=== PATIENT | male | born 1970 | race Hispanic/Latino ===

== ENCOUNTER → 2017-11-18 | Day surgery (SDC) | payer OTHER ==
[2017-11-17 10:13] LABS: BASOPHILS % 0.7 % (0.0-1.0); EOSINOPHILS # (AUTO) 0.2 (0.0-0.4); EOSINOPHILS % 3.8 % (0.0-6.0); HEMATOCRIT 44.2 % (38.2-49.6); HEMOGLOBIN 15.9 g/dL (14.0-18.0); LYMPHOCYTES % 35.5 % (18.0-39.1); MEAN CORPUSCULAR HEMOGLOBIN 31.1 pg (28-32); MEAN CORPUSCULAR VOLUME 86.3 fL (81-99); MONOCYTES # (AUTO) 0.5 (0.2-0.8); MONOCYTES % 8.4 % (4.4-11.3); NEUTROPHILS # (AUTO) 2.8 (2.1-6.9); NEUTROPHILS % 51.4 % (38.7-80.0); PLATELET COUNT 227 x10e3/uL (140-360); RED BLOOD COUNT 5.12 x10e6/uL (4.3-5.7); RED CELL DISTRIBUTION WIDTH 12.3 % (11.7-14.4)
[2017-11-17 10:31] LABS: ANION GAP 10.1 mmol/L (8-16); BLOOD UREA NITROGEN 12 mg/dL (7-26); BUN/CREATININE RATIO 16 (6-25); CALCIUM 8.5 mg/dL (8.4-10.2); CARBON DIOXIDE 30 mmol/L (22-29); CHLORIDE 102 mmol/L (98-107); CREATININE, SERUM 0.73 mg/dL (0.72-1.25); EST GLOMERULAR FILTRATION RATE > 60 ML/MIN (60-); GLUCOSE 213 mg/dL (74-118); POTASSIUM 4.1 mmol/L (3.5-5.1); SODIUM 138 mmol/L (136-145)
[~2017-11-18] MED LIST: ACETAMINOPHEN/CODEINE 300MG - 30MG TAB ONE; BUPIVACAINE 0.25%/EPI 30ML SDV INJ ONE; CEFAZOLIN SOD 1 GM VIAL ONE; DEXAMETHASONE SOD PHOS INJ 4 MG/ML VIAL ONE; FENTANYL CITRATE/PF 100MCG/2 ML INJ ONE; KETOROLAC TROMETHAMINE 30 MG/ML VIAL ONE; LIDOCAINE HCL 2% LOCAL INJ 5 ML SDV VIAL INJ ONE; METFORMIN HCL500 MG PO; MIDAZOLAM HCL 2 MG/2 ML VIAL ONE; ONDANSETRON HCL INJ 2 MG/ML VIAL ONE; PROPOFOL IV EMULSION 10 MG/ML 20 ML VIAL ONE; ROCURONIUM BROMIDE 10 MG/ML 5ML VIAL ONE; SEVOFLURANE INHAL SOLN 250 ML PEN BTL ONE
--- OUTSIDE RECORDS SUMMARY | 2017-11-18 08:14 | XMS REPORT ---
Author Author [facility] Address Unknown Phone Unavailable Care Team Providers Care Video Manager Name Role Phone ERYN MAXWELL Unavailable Unavailable Problems This patient has no known problems. Allergies, Adverse Reactions, Alerts This patient has no known allergies or adverse reactions. Medications This patient has no known medications. Results Test Description Test Time Test Comments Text Results Atomic Results Result Comments US EXTREMITY DE LUNA NON-VAS [place] [address] Patient Name: EMILIANO TUTTLE MR #: [id number] : 1970 Age/Sex: 47/M Req #: [id number] Adm Physician: Ordered by: ERYN MAXWELL MD Report #: [id number] Location: Room/Bed: Procedure: [id number] 0016 US/US EXTREMITY DE LUNA NON-VAS Exam Date: 08/11/17 Exam Time: 1603 REPORT STATUS: Signed PROCEDURE: EXTREMITY ULTRASOUND COMPARISON: None. INDICATIONS: UNILATERAL INGUINAL HERNIA TECHNIQUE: Color duplex Doppler ultrasound evaluation analysis was performed in the usual manner. FINDINGS: Fat containing left inguinal hernia. Partially reducible. CONCLUSION: Partially reducible fat-containing left inguinal hernia. Dictated by: Darnell Wheat M.D. on 08/11/2017 at 16:51 Electronically approved by: Darnell Wheat M.D. on 08/11/2017 at 16:51 Dictated By: DARNELL WHEAT MD 50 Transcribed By: RUBEN on 08/11/171650 COPY TO: ERYN MAXWELL MD
--- NOTE | 2017-11-18 14:48 | Operative Report ---
DATE OF PROCEDURE: November 18, 2017 PREOPERATIVE DIAGNOSIS: Bilateral inguinal hernia. POSTOPERATIVE DIAGNOSIS: Bilateral inguinal hernia. PROCEDURE PERFORMED: Repair of left inguinal hernia. ANESTHESIA: General. ESTIMATED BLOOD LOSS: Minimal. DRAINS: None. COMPLICATIONS: None. INDICATIONS AND FINDINGS: The patient is a 47-year-old male who complained of pain in the left groin after heavy lifting at work. Physical examination revealed bilateral inguinal hernia, left greater than right. INTRAOPERATIVE FINDINGS: A left inguinal hernia with a blowout of the left inguinal canal floor. There was no indirect hernia sac. The Ultra Pro hernia system oval type was placed. DESCRIPTION OF PROCEDURE: With the patient lying on the operative table in the supine position and after administration of general anesthesia, he was prepped and draped for repair of the left inguinal hernia. Pre-emptive anesthesia was given with 0.25% Marcaine with epinephrine as an ilioinguinal nerve block and incisional nerve block. A transverse groin incision was made and deepened through the skin, subcutaneous tissue and Miranda's fascia until the external aponeurosis was identified. This was incised along the course of its fibers transecting the external inguinal ring. Mid and lateral leads were developed. The cord was mobilized at the level of the pubic tubercle and retracted away from the operative field by a Margi drain. The cremaster veil was incised. An indirect hernia sac was searched for and none was found. The transversalis fascia was then incised, and a pocket was created using blunt dissection to accommodate the mesh. Then the Ultra Pro hernia system oval type was placed with the underlay part of the mesh over the direct space and the overlay part over the inguinal canal floor. A slit was made to accommodate the cord. Then the mesh was secured to local tissues using a series of interrupted 2 Ethibond suture. The wound was irrigated. Bleeding points were cauterized. Then the wound was closed in layers using 2-0 Vicryl for the external aponeurosis, 2-0 catgut for the soft tissues and the skin was closed using giorgio. Sterile dressing was applied. The patient tolerated the procedure well, and taken to the recovery room in stable condition. Job#: [id number] [place]
== END | disposition home or self-care (01) ==
LOC: OR 08:11
PROVIDERS: ATTEND Surgery
DX: K40.20 Bilateral inguinal hernia, without obstruction or gangrene, not specified as recurrent (principal); E11.9 Type 2 diabetes mellitus without complications; Z01.810 Encounter for preprocedural cardiovascular examination; Z01.812 Encounter for preprocedural laboratory examination
CPT/HCPCS: 36415 ×2; 49505; 80048; 82948; 85025; 93005; C1781; J0690; J1100; J1885; J2001; J2250; J2405

== ENCOUNTER 2018-03-07 18:21 | Emergency (ER) | payer OTHER ==
[~2018-03-07] VITALS: Ht 180.3 cm; Wt 99.8 kg
[~2018-03-07 18:21] MED LIST changes: -ACETAMINOPHEN/CODEINE 300MG - 30MG TAB ONE; -BUPIVACAINE 0.25%/EPI 30ML SDV INJ ONE; -CEFAZOLIN SOD 1 GM VIAL ONE; -DEXAMETHASONE SOD PHOS INJ 4 MG/ML VIAL ONE; -FENTANYL CITRATE/PF 100MCG/2 ML INJ ONE; -KETOROLAC TROMETHAMINE 30 MG/ML VIAL ONE; -LIDOCAINE HCL 2% LOCAL INJ 5 ML SDV VIAL INJ ONE; -MIDAZOLAM HCL 2 MG/2 ML VIAL ONE; -ONDANSETRON HCL INJ 2 MG/ML VIAL ONE; -PROPOFOL IV EMULSION 10 MG/ML 20 ML VIAL ONE; -ROCURONIUM BROMIDE 10 MG/ML 5ML VIAL ONE; -SEVOFLURANE INHAL SOLN 250 ML PEN BTL ONE
[2018-03-07] MEDS ORDERED: HYDROCODONE/APAP 10MG-325MG TAB PO ONE (19:00)
--- NOTE | 2018-03-07 19:38 | Diagnostic Imaging Report ---
Right complete knee. CPT CODE: 27902. INDICATION: Fall COMPARISON: None FINDINGS: No evidence of acute fracture or dislocation. Mild tilt femoral compartment narrowing. No significant medial or lateral compartment narrowing. No joint effusion. IMPRESSION: No acute traumatic pathology. Signed by: Dr. Michelle San MD on 03/07/2018 7:35 PM
[2018-03-07 20:46] VITALS: BP 126/89
== END 2018-03-07 20:49 | disposition home or self-care (01) ==
LOC: ER 18:21
DX: S80.01XA Contusion of right knee, initial encounter (principal); S83.91XA Sprain of unspecified site of right knee, initial encounter; X50.1XXA Overexertion from prolonged static or awkward postures, initial encounter; Y92.008 Other place in unspecified non-institutional (private) residence as the place of occurrence of the external cause
CPT/HCPCS: 99283

== ENCOUNTER 2020-07-25 22:12 | Emergency (ER) | payer OTHER ==
[~2020-07-25] VITALS: Ht 180.3 cm; Wt 99.8 kg
--- NOTE | 2020-07-25 22:17 | Emergency Department Note ---
History of Present Illnes History of Present Illness Chief Complaint: Eye, Ear, Nose, Throat, Dental History of Present Illness This is a 49 year old male with 3 day h/o of dental pain. Historian: Patient Arrival Mode: Car Onset (how long ago): day(s) (3) Location: left lower dental pain Quality: sharp Radiation: Reports non-radiation Duration (how long): day(s) Timing of current episode: constant Progression: unchanged Chronicity: new Context: Denies recent illness, Denies recent surgery, Denies recent immobilization, Denies recent travel, Denies trauma/injury, Denies new medications, Denies hx of DVT/PE, Denies non-compliance w/ medications, Denies other Relieving factors: none Exacerbating factors: none Associated symptoms: Denies denies other symptoms, Denies confusion, Denies chest pain, Denies cough, Denies diaphoresis, Denies fever/chills, Denies headaches, Denies loss of appetite, Denies malaise, Denies nausea/vomiting, Denies rash, Denies seizure, Denies shortness of breath, Denies syncope, Denies weakness, Denies other Treatments prior to arrival: none Past Medical/Family History Physician Review I have reviewed the patient's past medical and family history. Any updates have been documented here. Past Medical History Recent Fever: No Clinical Suspicion of Infectio: No New/Unexplained Change in Ment: No Past Medical History: Diabetes Other Surgery: hernia Social History Smoking Cessation: Never Smoker Alcohol Use: None Any Illegal Drug Use: No Other Last Tetanus: unk Review of Systems Review of Systems Constitutional: Reports no symptoms EENTM: Reports mouth pain Cardiovascular: Reports no symptoms Respiratory: Reports no symptoms Gastrointestinal: Reports no symptoms Genitourinary: Reports no symptoms Musculoskeletal: Reports no symptoms Integumentary: Reports no symptoms Neurological: Reports no symptoms Psychological: Reports no symptoms Endocrine: Reports no symptoms Hematological/Lymphatic: Reports no symptoms Physical Exam Related Data Allergies: Coded Allergies: No Known Allergies (Unverified , 11/17/17) Triage Vital Signs Vital Signs Date Time Temp Pulse Resp B/P (MAP) Pulse Ox O2 Delivery O2 Flow Rate FiO2 07/25/20 22:15 98.4 66 16 152/91 100 Room Air Vital signs reviewed: Yes Physical Exam CONSTITUTIONAL Constitutional: Present well-developed, Present well-nourished HENT HENT: Present dental caries (tooth #32) HENT L/R: Present left ext ear normal, Present right ext ear normal EYES Eyes: Reports PERRL, Reports conjunctivae normal NECK Neck: Present ROM normal PULMONARY Pulmonary: Present effort normal, Present breath sounds normal CARDIOVASCULAR Cardiovascular: Present regular rhythm, Present heart sounds normal, Present capillary refill normal, Present normal rate GASTROINTESTINAL Abdominal: Present soft, Present nontender, Present bowel sounds normal GENITOURINARY Genitourinary: Present exam deferred SKIN Skin: Present warm, Present dry MUSCULOSKELETAL Musculoskeletal: Present ROM normal NEUROLOGICAL Neurological: Present alert, Present oriented x 3, Present no gross motor or sensory deficits PSYCHOLOGICAL Psychological: Present mood/affect normal, Present judgement normal Procedures Nerve Block Nerve Block: Nerve Block 1 Local anesthetic: bupivacaine 0.5% Amount of anesthesia (mL): 3 Side: left Intraoral nerve block: inferior alveolar Procedure successful: Yes Patient tolerated procedure: well Assessment & Plan Medical Decision Making MDM Diff Dx : dental caries, dental pain, dental abscess Assessment & Plan Final Impression: (1) Pain, dental Home Meds Reported Medications Metformin Hcl (METFORMIN HCL) 500 Mg Tablet, 500 MG PO BID, #60 TAB 11/17/17 TANISHA SAL DO Jul 25, 2020 22:17
[2020-07-25] MEDS ORDERED: BUPIVACAINE HCL 0.25% 10ML MPF VIAL INJ ONE (22:26)
[2020-07-25] MEDS ORDERED: BUPIVACAINE HCL 0.5% 10ML MPF VIAL INJ ONE (22:27)
[2020-07-25] MEDS ORDERED: BUPIVACAINE HCL 0.5% INJ 30 ML VIAL INJ ONE (22:30)
--- OUTSIDE RECORDS SUMMARY | 2020-07-26 10:25 | XMS REPORT | Clinical Summary ---
Author Author [facility] Organization [facility] Address Unknown Phone Unavailable Care Team Providers Care Tube Former Operator Name Role Phone PCP Unavailable Allergies Comments Active Allergy Reactions Severity Noted Date No Known Drug Allergies 05/14/2015 Medications End Date Status Medication Sig Dispensed Refills Start Date Active metFORMIN (GLUCOPHAGE) Take 1 tablet 180 tablet 1 0 1,000 mg by mouth 2 5 tabletIndications: DM times daily (diabetes mellitus), type (with meals). 2, uncontrolled Active blood glucose Use as 1 Kit 0 meterIndications: DM directed.. 5 (diabetes mellitus), type 2, uncontrolled Active blood glucose test 2 times 2 Box 11 01 stripsIndications: DM weekly. 5 (diabetes mellitus), type 2, uncontrolled Active lancets 28 by 1 Box 12 gaugeIndications: DM MISCELLANEOUS 5 (diabetes mellitus), type route 2 times 2, uncontrolled weekly. Active ketoconazole (NIZORAL) 2 Apply to 30 g 3 0 % topical affected area 5 creamIndications: Tinea daily. pedis of both feet Active Problems Problem Noted Date Elevated LFTs 05/19/2015 DM (diabetes mellitus), type 2, uncontrolled 015 LATENT TB Overview: ON INH THERAPY Subconjunctival hemorrhage Immunizations Name Administration Dates Next Due PPV 23 Pneumococcal 05/14/2015 Polysaccaride TT Tetanus Toxoid Vaccine 05/03/2007 Family History Medical History Relation Name Comments Diabetes Brother Diabetes Mother Diabetes Sister Relation Name Status Comments Brother Alive Brother Alive Brother Alive Brother Alive Brother Alive Brother Daughter Alive Daughter Alive Daughter Alive Father Maternal Grandfather Maternal Grandmother Mother Alive Paternal Grandfather Paternal Grandmother Sister Alive Sister Alive Sister Alive Sister Son Alive Son Alive Social History Date Tobacco Use Types Packs/Day Years Used Never Smoker Smokeless Tobacco: Never Used Tobacco Cessation: Counseling Given: No Drinks/Week oz/Week Comments Alcohol Use 1 Standard drinks or equivalent 0.8 Yes Sex Assigned at Date Recorded Not on file Industry Job Start Date Occupation Not on file Not on file Not on file Travel End Travel History Travel Start No recent travel history available. Last Filed Vital Signs Not on file Plan of Treatment Health Maintenance Due Date Last Done Comments DM Foot Exam (Yearly) 1986 DM HGBA1C (Yearly) 05/14/2016 05/14/2015 DM Microalbumin Urine 05/14/2016 05/14/2015 Scrn (Yearly) DM Retinal Exam (Yearly) 05/29/2016 05/29/2015 Colorectal Cancer Scrn 2018 Annual (FIT/FOBT) Age 50 to 75 Results Not on fileafter 07/25/2019 Insurance Type Payer Benefit Subscriber ID Effective Phone Address Plan / Dates Group [facility] SELF-PAY SELF-PAY xxxxxxxxx 2016- [phone] [address] [place] [address]
--- OUTSIDE RECORDS SUMMARY | 2020-07-26 10:25 | XMS REPORT | Continuity of Care Document ---
Author Author [facility] Organization [facility] Address [address] [place] [address] Phone Unavailable Care Team Providers Care Brine Tank Tender Name Role Phone NO, PCP PCP Unavailable Dawood REBOLLEDO Attphys Unavailable Lucero MAXWELL Attphys Unavailable Payers Payer Name Policy Type Policy Number Effective Date Expiration Date [id number] [place] [address] [id number] 2016 00:00:00 [facility] Problems Condition Name Condition Details Condition Category Status Onset Date Resolution Date Last Treatment Date Treating Clinician Comments Source Elevated LFTs Elevated LFTs Disease Active 2015-05-19 00:00:00 [facility] DM (diabetes mellitus), type 2, uncontrolled DM (diabe kendall mellitus), type 2, uncontrolled Disease Active 2015-05-19 00:00:00 [facility] Toothache Problem Active [facility] LATENT TB LATENT TB Disease Active Overview: ON INH THERAPY [facility] Subconjunctival hemorrhage Subconjunctival hemorrhage Disease Active [facility] Allergies, Adverse Reactions, Alerts This patient has no known allergies or adverse reactions. Family History Family Member Diagnosis Comments Start Date Stop Date Source Natural brother Diabetes [facility] Natural mother Diabetes [facility] Natural sister Diabetes [facility] Social History Social Habit Start Date Stop Date Quantity Comments Source Sex Assigned At [facility] Alcohol intake 2016-03-28 00:00:00 2016-03-28 00:00:00 Current drinker of alcohol (finding) [facility] Smoking Status Start Date Stop Date Source Never smoker [facility] Medications Ordered Medication Name Filled Medication Name Start Date Stop Da te Current Medication? Ordering Clinician Indication Dosage Frequency Signature (SIG) Comments Components Source blood glucose test strips 2015-05-15 00:00:00 Yes DM (diabetes mellitus), type 2, uncontrolled 2 times weekly. [facility] lancets 28 gauge 2015-05-15 00:00:00 Yes DM (diabetes mellitus), type 2, uncontrolled by MISCELLANEOUS route 2 times weekly. [facility] metFORMIN (GLUCOPHAGE) 1,000 mg tablet 2015-05-14 00:00:00 Yes DM (diabetes mellitus), type 2, uncontrolled 1000mg Take 1 tablet by mouth 2 times daily (with meals). [facility] blood glucose meter 2015-05-14 00:00:00 Yes DM (diabetes mellitus), type 2, uncontrolled Use as directed.. [facility] ketoconazole (NIZORAL) 2 % topical cream 2015-05-14 00:00:00 Yes Tinea pedis of both feet QD Apply to affected area daily. [facility] Metformin Hcl Metformin Hcl Yes 500 Twice A Day [facility] Immunizations Ordered Immunization Name Filled Immunization Name Date Status Comments Source PPV 23 Pneumococcal Polysaccaride 2015-05-14 00:00:00 Comp leted [facility] TT Tetanus Toxoid Vaccine 2007-05-03 00:00:00 Completed [facility] Vital Signs Vital Name Observation Time Observation Value Comments Source Oxygen saturation by Pulse oximetry 2020-07-25 22:15:00 100 /min [facility] Weight 2020-07-25 22:15:00 220 [lb_av] [facility] BMI (Body Mass Index) 2020-07-25 22:15:00 30.7 kg/m2 [facility] Procedures This patient has no known procedures. Plan of Care Planned Activity Planned Date Details Comments Source Future Scheduled Test 2018 00:00:00 Screening for miguel gnant neoplasm of colon (procedure) [code = 856621319] [facility] Scheduled Test 2016-05-29 00:00:00 DM Retinal Exam (Y early) [code = DM Retinal Exam (Yearly)] [facility] Scheduled Test 2016-05-14 00:00:00 Hemoglobin A1c frankie surement (procedure) [code = 33932566] [facility] Scheduled Test 2016-05-14 00:00:00 Urine screening fo r protein (procedure) [code = 546940042] [facility] Scheduled Test 1986 00:00:00 DM Foot Exam (Year ly) [code = DM Foot Exam (Yearly)] [facility] Dental Caries (Cavities) [facility] Encounters Start Date/Time End Date/Time Encounter Type Admission Type Att[facility] Care Department Encounter ID Source 2020-07-25 22:30:00 2020-07-25 22:36:00 Departed Emergency Room [facility] [id number] [facility] dical [place] 2018-03-07 18:21:00 2018-03-07 20:49:00 Departed Emergency Room 1 CATHY REBOLLEDO [facility] [id number] [facility] 2017-11-18 08:11:00 2017-11-18 08:11:00 Registered Surgical Day Care [facility] [id number] [facility] 2017-08-11 15:32:00 2017-08-11 15:32:00 Registered Clinic GEOV[facility]NA [facility]USSEINERYN [place] [facility] [id number] [facility] Results Test Description Test Time Test Comments Results Result Comments Source KNEE RIGHT THREE VIEWS 2018-03-07 19:34:00 [facility] [address] [address] Patient Name: EMILIANO TUTTLE MR #: [id number] : 1970 Age/Sex: 47/M Req #: [id number] Adm Physician: Ordered by: TANISHA TOBAR SUPERVISOR COMPOUNDING AND FINISHING Report #: [id number] Location: ER Room/Bed: Procedure: [id number] DX/KNEE RIGHT THREE VIEWS Exam Date: 03/07/18 Exam Time: 1845 REPORT STATUS: Signed Right complete knee. CPT CODE: 80472. INDICATION: Fall COMPARISON: None FINDINGS: No evidence of acute fracture or dislocation. Mild tilt femoral compartment narrowing. No significant medial or lateral compartment narrowing. No joint effusion. IMPRESSION: No acute traumatic pathology. Signed by: Dr. Angelika San MD on 03/07/2018 7:35 PM Dictated By: ANGELIKA SAN MD 34 Transcribed By: HARJINDER on 03/07/181934 COPY TO: TANISHA TOBAR NP Bedside Glucose 2017-11-18 08:55:00 Test Item Bedside Glucose (test code = 82338-1) 179 70-120 H Meter ID: [id number] Level 2017-11-17 10:32:00* Test Item Value Reference Range Interpretation Comments Sodium Level (test code = 2951-2) 138 136-145 [facility] Uhrsm6197-39-60 10:32:00* Test Item Value Reference Range Interpretation Comments Potassium Level (test code = 2823-3) 4.1 3.5-5.1 [facility] HospitalChloride Lpbbf8004-96-81 10:32:00* Test Item Value Reference Range Interpretation Comments Chloride Level (test code = 2075-0) 102 98-107 [facility] HospitalCarbon Dioxide Vuiuc7115-09-80 10:32:00* Test Item Value Reference Range Interpretation Comments Carbon Dioxide Level (test code = 2028-9) 30 22-29 H [facility] HospitalAnion Rlr8241-06-64 10:32:00* Test Item Value Reference Range Interpretation Comments Anion Gap (test code = 31389-1) 10.1 8-16 [facility] HospitalBlood Urea Yizirdex5336-43-14 10:32:00* Test Item Value Reference Range Interpretation Comments Blood Urea Nitrogen (test code = 3094-0) 12 7-26 [facility] HospitalCreatinine2018-03-15 10:32:00* Test Item Value Reference Range Interpretation Comments Creatinine (test code = 2160-0) 0.73 0.72-1.25 [facility] HospitalBUN/Creatinine Aipxv1475-68-04 10:32:00* Test Item Value Reference Range Interpretation Comments BUN/Creatinine Ratio (test code = 3097-3) 16 6-25 [facility] HospitalEstimat Glomerular Filtration Rate 2017-11-17 10:32:00* Test Item Value Reference Range Interpretation Comments Estimat Glomerular Filtration Rate (test code = 74620-0) 60- >60 Ranges were taken from the National Kidney Disease Education Program and the [facility] Foundation literature.Reference ranges:60 or greater: Aecvpk29-47 ( for 3 consecutive months): Chronic kidney disease 15 or less: Kidney failureFaith Community HospitalGlucose Jqkws4532-48-20 10:32:00* Test Item Value Reference Range Interpretation Comments Glucose Level (test code = JLH2542) 213 74-118 H [facility] HospitalCalcium Klksl0064-28-10 10:32:00* Test Item Value Reference Range Interpretation Comments Calcium Level (test code = 46043-7) 8.5 8.4-10.2 [facility] HospitalWhite Blood Shqqf8683-14-98 10:13:00* Test Item Value Reference Range Interpretation Comments White Blood Count (test code = 6690-2) 5.49 4.8-10.8 [facility] HospitalRed Blood Wtzog4262-39-11 10:13:00* Test Item Value Reference Range Interpretation Comments Red Blood Count (test code = 789-8) 5.12 4.3-5.7 [facility] HospitalHemoglobin2018-03-15 10:13:00* Test Item Value Reference Range Interpretation Comments Hemoglobin (test code = 41309-3) 15.9 14.0-18.0 [facility] HospitalHematocrit2018-03-15 10:13:00* Test Item Value Reference Range Interpretation Comments Hematocrit (test code = 4544-3) 44.2 38.2-49.6 [facility] HospitalMean Corpuscular Ayzdbk3265-52-02 10:13:00* Test Item Value Reference Range Interpretation Comments Mean Corpuscular Volume (test code = 787-2) 86.3 81-99 [facility] HospitalMean Corpuscular Nbvskfkrxe7711-04-82 10:13:00* Test Item Value Reference Range Interpretation Comments Mean Corpuscular Hemoglobin (test code = 785-6) 31.1 28-32 [facility] HospitalMean Corpuscular Hemoglobin Concent 2017-11-17 10:13:00* Test Item Value Reference Range Interpretation Comments Mean Corpuscular Hemoglobin Concent (test code = 786-4) 36.0 31-35 H [facility] HospitalRed Cell Distribution Kvmfv5464-94-07 10:13:00* Test Item Value Reference Range Interpretation Comments Red Cell Distribution Width (test code = 93819-0) 12.3 11.7 -14.4 [facility] HospitalPlatelet Oufvc7276-70-61 10:13:00* Test Item Value Reference Range Interpretation Comments Platelet Count (test code = 777-3) 227 140-360 [facility] HospitalNeutrophils (%) (Auto)2017-11-17 10:13:00 * Test Item Value Reference Range Interpretation Comments Neutrophils (%) (Auto) (test code = 29680-5) 51.4 38.7-80.0 [facility] HospitalLymphocytes (%) (Auto)2017-11-17 10:13:00 * Test Item Value Reference Range Interpretation Comments Lymphocytes (%) (Auto) (test code = 736-9) 35.5 18.0-39.1 [facility] HospitalMonocytes (%) (Auto)2017-11-17 10:13:00* Test Item Value Reference Range Interpretation Comments Monocytes (%) (Auto) (test code = 5905-5) 8.4 4.4-11.3 [facility] HospitalEosinophils (%) (Auto)2017-11-17 10:13:00 * Test Item Value Reference Range Interpretation Comments Eosinophils (%) (Auto) (test code = 713-8) 3.8 0.0-6.0 [facility] HospitalBasophils (%) (Auto)2017-11-17 10:13:00* Test Item Value Reference Range Interpretation Comments Basophils (%) (Auto) (test code = 706-2) 0.7 0.0-1.0 [facility] HospitalIM GRANULOCYTES %2017-11-17 10:13:00* Test Item Value Reference Range Interpretation Comments IM GRANULOCYTES % (test code = IM GRANULOCYTES %) 0.2 0.0- 1.0 [facility] HospitalNeutrophils # (Auto)2017-11-17 10:13:00* Test Item Value Reference Range Interpretation Comments Neutrophils # (Auto) (test code = 751-8) 2.8 2.1-6.9 [facility] HospitalLymphocytes # (Auto)2017-11-17 10:13:00* Test Item Value Reference Range Interpretation Comments Lymphocytes # (Auto) (test code = 38931-9) 2.0 1.0-3.2 [facility] HospitalMonocytes # (Auto)2017-11-17 10:13:00* Test Item Value Reference Range Interpretation Comments Monocytes # (Auto) (test code = 742-7) 0.5 0.2-0.8 [facility] HospitalEosinophils # (Auto)2017-11-17 10:13:00* Test Item Value Reference Range Interpretation Comments Eosinophils # (Auto) (test code = 711-2) 0.2 0.0-0.4 [facility] HospitalBasophils # (Auto)2017-11-17 10:13:00* Test Item Value Reference Range Interpretation Comments Basophils # (Auto) (test code = 704-7) 0.0 0.0-0.1 [facility] HospitalAbsolute Immature Granulocyte (auto 2017-11-17 10:13:00* Test Item Value Reference Range Interpretation Comments Absolute Immature Granulocyte (auto (kendall t code = Absolute Immature Granulocyte (auto) 0.01 0-0.1 [facility] HospitalUS EXTREMITY DE LUNA NON-VAS [facility] [address] [place] [address] Patient Name: EMILIANO TUTTLE MR #: [id number] : 1970 Age/Sex: 47/M Req #: [id number] Adm Physician: Ordered by: ERYN MAXWELL MD Report #: [id number] Location: US Room/Bed: Procedure: [id number] US/US EXTREMITY DE LUNA NON-VAS Exam D ate: 08/11/17 Exam Time: 1603 REPORT STATUS: Si gned PROCEDURE: EXTREMITY ULTRASOUND COMPARISON: None. INDICA TIONS: UNILATERAL INGUINAL HERNIA TECHNIQUE: Color duplex Doppler ultr asound evaluation analysis was performed in the usual manner. FINDINGS: Fat containing left inguinal hernia. Partially reducible. CONCLUSION: Partially reducible fat-containing left inguinal hernia. Dictated by: Myles Whitehead M.D. on 08/11/2017 at 16:51 Electronically approved by: Myles Whitehead M.D. on 08/11/2017 at 16:51 Dictated By: MYLES WHITEHEAD MD ectronically Signed By: MYLES WHITEHEAD MD on 08/11/171650 Transcribed By: RUBEN on 1650 COPY TO: ERYN MAXWELL MD
== END 2020-07-25 22:36 | disposition home or self-care (01) ==
LOC: ER 22:30
DX: K08.89 Other specified disorders of teeth and supporting structures (principal); E11.9 Type 2 diabetes mellitus without complications
CPT/HCPCS: 99282

== ENCOUNTER 2020-07-27 21:44 | Emergency (ER) | payer OTHER ==
[~2020-07-27] VITALS: Ht 177.8 cm; Wt 99.8 kg
--- NOTE | 2020-07-27 22:02 | Emergency Department Note ---
History of Present Illnes History of Present Illness Chief Complaint: Eye, Ear, Nose, Throat, Dental History of Present Illness This is a 49 year old male returns to the ED for dental pain right lower tooth. Patient with standing appointment with dentist tomorrow . Historian: Patient, Family Member Arrival Mode: Car History limited by: language barrier Stitchdown Thread Laster Required: Yes Onset (how long ago): day(s) Radiation: Reports non-radiation Severity: mild Onset quality: gradual Duration (how long): day(s) Timing of current episode: constant Progression: waxing and waning Chronicity: new Context: Denies recent illness, Denies recent surgery, Denies recent immobilization, Denies recent travel, Denies trauma/injury, Denies new medications, Denies hx of DVT/PE, Denies non-compliance w/ medications, Denies other Relieving factors: none Exacerbating factors: none Previous service: medications given, other (dental block) Past Medical/Family History Physician Review I have reviewed the patient's past medical and family history. Any updates have been documented here. Past Medical History Recent Fever: No Clinical Suspicion of Infectio: Yes New/Unexplained Change in Ment: No Past Medical History: Diabetes Past Surgical History: Hernia Repair Other Surgery: hernia Social History Smoking Cessation: Never Smoker Alcohol Use: None Any Illegal Drug Use: No Other Last Tetanus: unk Review of Systems Review of Systems Constitutional: Reports no symptoms EENTM: Reports mouth pain Cardiovascular: Reports no symptoms Respiratory: Reports no symptoms Gastrointestinal: Reports no symptoms Genitourinary: Reports no symptoms Musculoskeletal: Reports no symptoms Integumentary: Reports no symptoms Neurological: Reports no symptoms Psychological: Reports no symptoms Endocrine: Reports no symptoms Hematological/Lymphatic: Reports no symptoms Physical Exam Related Data Allergies: Coded Allergies: No Known Allergies (Unverified , 11/17/17) Triage Vital Signs Vital Signs Date Time Temp Pulse Resp B/P (MAP) Pulse Ox O2 Delivery O2 Flow Rate FiO2 07/27/20 22:02 98.5 73 20 152/85 97 Room Air Vital signs reviewed: Yes Physical Exam CONSTITUTIONAL Constitutional: Present well-developed, Present well-nourished HENT HENT: Present dental caries, Present other (right lower mandibular fullness) HENT L/R: Present left ext ear normal, Present right ext ear normal EYES Eyes: Reports PERRL, Reports conjunctivae normal NECK Neck: Present ROM normal PULMONARY Pulmonary: Present effort normal, Present breath sounds normal CARDIOVASCULAR Cardiovascular: Present regular rhythm, Present heart sounds normal, Present capillary refill normal, Present normal rate GASTROINTESTINAL Abdominal: Present soft, Present nontender, Present bowel sounds normal GENITOURINARY Genitourinary: Present exam deferred SKIN Skin: Present warm, Present dry MUSCULOSKELETAL Musculoskeletal: Present ROM normal NEUROLOGICAL Neurological: Present alert, Present oriented x 3, Present no gross motor or sensory deficits PSYCHOLOGICAL Psychological: Present mood/affect normal, Present judgement normal Procedures Nerve Block Nerve Block: Nerve Block 1 Local anesthetic: bupivacaine 0.25% Side: right Intraoral nerve block: inferior alveolar Procedure successful: Yes Patient tolerated procedure: well Complications: none Assessment & Plan Medical Decision Making MDM Diff Dx : dental abscess, ludwigs angina, mandibular hematoma Assessment & Plan Final Impression: (1) Dental infection Depart Disposition: HOME, SELF-intermediate Meds Reported Medications Metformin Hcl (METFORMIN HCL) 500 Mg Tablet, 500 MG PO BID, #60 TAB 11/17/17 TANISHA SAL DO Jul 27, 2020 22:02
[2020-07-27] MEDS: CLINDAMYCIN HCL 150 MG CAP PO STA (22:10)
[2020-07-27] MEDS: BUPIVACAINE HCL 0.25% 10ML MPF VIAL INJ ONE (22:16)
--- OUTSIDE RECORDS SUMMARY | 2020-07-27 22:55 | XMS REPORT | Continuity of Care Document ---
Author Author [facility] t Organization [facility] Address [address] [place] [address] Phone Unavailable Care Team Providers Care Reprographics Associate Name Role Phone NO, PCP PCP Unavailable Dawood REBOLLEDO Attphys Unavailable Lucero MAXWELL Attphys Unavailable Payers Payer Name Policy Type Policy Number Effective Date Expiration Date [id number] [address] [id number] 2016 00:00:00 [facility] Problems Condition Name Condition Details Condition Category Status Onset Date Resolution Date Last Treatment Date Treating Clinician Comments Source Elevated LFTs Elevated LFTs Disease Active 2015-05-19 00:00:00 [facility] DM (diabetes mellitus), type 2, uncontrolled DM (diabe kendall mellitus), type 2, uncontrolled Disease Active 2015-05-19 00:00:00 [facility] Toothache Problem Active [facility] LATENT TB LATENT TB Disease Active Overview: ON INH THERAPY [facility] Subconjunctival hemorrhage Subconjunctival hemorrhage Disease Active [facility] Allergies, Adverse Reactions, Alerts This patient has no known allergies or adverse reactions. Family History Family Member Diagnosis Comments Start Date Stop Date Source Natural brother Diabetes [facility] Natural mother Diabetes [facility] Natural sister Diabetes [facility] Social History Social Habit Start Date Stop Date Quantity Comments Source Sex Assigned [facility] Alcohol intake 2016-03-28 00:00:00 2016-03-28 00:00:00 Current drinker of alcohol (finding) [facility] Smoking Status Start Date Stop Date Source Never smoker [facility] Medications Ordered Medication Name Filled Medication Name Start Date Stop Da te Current Medication? Ordering Clinician Indication Dosage Frequency Signature (SIG) Comments Components Source blood glucose test strips 2015-05-15 00:00:00 Yes DM (diabetes mellitus), type 2, uncontrolled 2 times weekly. [facility] lancets 28 gauge 2015-05-15 00:00:00 Yes DM (diabetes mellitus), type 2, uncontrolled by MISCELLANEOUS route 2 times weekly. [facility] metFORMIN (GLUCOPHAGE) 1,000 mg tablet 2015-05-14 00:00:00 Yes DM (diabetes mellitus), type 2, uncontrolled 1000mg Take 1 tablet by mouth 2 times daily (with meals). [facility] blood glucose meter 2015-05-14 00:00:00 Yes DM (diabetes mellitus), type 2, uncontrolled Use as directed.. [facility] ketoconazole (NIZORAL) 2 % topical cream 2015-05-14 00:00:00 Yes Tinea pedis of both feet QD Apply to affected area daily. [facility] Metformin Hcl Metformin Hcl Yes 500 Twice A Day [facility] Immunizations Ordered Immunization Name Filled Immunization Name Date Status Comments Source PPV 23 Pneumococcal Polysaccaride 2015-05-14 00:00:00 Comp leted [facility] TT Tetanus Toxoid Vaccine 2007-05-03 00:00:00 Completed [facility] Vital Signs Vital Name Observation Time Observation Value Comments Source Oxygen saturation by Pulse oximetry 2020-07-25 22:15:00 100 /min [facility] Weight 2020-07-25 22:15:00 220 [lb_av] [facility] BMI (Body Mass Index) 2020-07-25 22:15:00 30.7 kg/m2 [facility] Procedures This patient has no known procedures. Plan of Care Planned Activity Planned Date Details Comments Source Future Scheduled Test 2018 00:00:00 Screening for miguel gnant neoplasm of colon (procedure) [code = 605464799] [facility] Scheduled Test 2016-05-29 00:00:00 DM Retinal Exam (Y early) [code = DM Retinal Exam (Yearly)] [facility] Scheduled Test 2016-05-14 00:00:00 Hemoglobin A1c frankie surement (procedure) [code = 09862560] [facility] Scheduled Test 2016-05-14 00:00:00 Urine screening fo r protein (procedure) [code = 308046853] [facility] Scheduled Test 1986 00:00:00 DM Foot Exam (Year ly) [code = DM Foot Exam (Yearly)] [facility] Dental Caries (Cavities) [facility] Encounters Start Date/Time End Date/Time Encounter Type Admission Type [facility] Care Department Encounter ID Source 2020-07-25 22:30:00 2020-07-25 22:36:00 Departed Emergency Room [facility] [id number] [facility] 2018-03-07 18:21:00 2018-03-07 20:49:00 Departed Emergency Room 1 CATHY REBOLLEDO [facility] [id number] [facility] 2017-11-18 08:11:00 2017-11-18 08:11:00 Registered Surgical Day Care [facility] [id number] [facility] 2017-08-11 15:32:00 2017-08-11 15:32:00 Registered Clinic GEOVANNA HUSSEINERYN [place] [facility] [id number] [facility] Results Test Description Test Time Test Comments Results Result Comments Source KNEE RIGHT THREE VIEWS 2018-03-07 19:34:00 [facility] [address] [address] Patient Name: EMILIANO TUTTLE MR #: [id number] : 1970 Age/Sex: 47/M Req #: [id number] Adm Physician: Ordered by: TANISHA TOBAR BUMPER OPERATOR Report #: [id number] Location: ER Room/Bed: Procedure: [id number] DX/KNEE RIGHT THREE VIEWS Exam Date: 03/07/18 Exam Time: 1845 REPORT STATUS: Signed Right complete knee. CPT CODE: 45564. INDICATION: Fall COMPARISON: None FINDINGS: No evidence [...] Test Item Bedside Glucose (test code = 73543-5) 179 70-120 H Meter ID: [id number][facility] 2017-11-17 10:32:00* Test Item Value Reference Range Interpretation Comments Sodium Level (test code = 2951-2) 138 136-145 [facility] Otgjv0022-10-21 10:32:00* Test Item Value Reference Range Interpretation Comments Potassium Level (test code = 2823-3) 4.1 3.5-5.1 [facility] HospitalChloride Nkbhr2001-80-62 10:32:00* Test Item Value Reference Range Interpretation Comments Chloride Level (test code = 2075-0) 102 98-107 [facility] HospitalCarbon Dioxide Qvfnn8927-89-78 10:32:00* Test Item Value Reference Range Interpretation Comments Carbon Dioxide Level (test code = 2028-9) 30 22-29 H [facility] HospitalAnion [id number] 10:32:00* Test Item Value Reference Range Interpretation Comments Anion Gap (test code = 84012-8) 10.1 8-16 [facility] HospitalBlood Urea Ftiajtwx1410-22-47 10:32:00* Test Item Value Reference Range Interpretation Comments Blood Urea Nitrogen (test code = 3094-0) 12 7-26 [facility] HospitalCreatinine2018-03-15 10:32:00* Test Item Value Reference Range Interpretation Comments Creatinine (test code = 2160-0) 0.73 0.72-1.25 [facility] HospitalBUN/Creatinine Jfvbb2389-90-07 10:32:00* Test Item Value Reference Range Interpretation Comments BUN/Creatinine Ratio (test code = 3097-3) 16 6-25 [facility] HospitalEstimat Glomerular Filtration Rate 2017-11-17 10:32:00* Test Item Value Reference Range Interpretation Comments Estimat Glomerular Filtration Rate (test code = 54524-4) 60- >60 Ranges were taken from the National Kidney Disease Education Program and the [facility] literature.Reference ranges:60 or greater: Xygnkl88-20 ( for 3 consecutive months): Chronic kidney disease 15 or less: Kidney failureTexas Orthopedic HospitalGlucose Meimd9738-31-51 10:32:00* Test Item Value Reference Range Interpretation Comments Glucose Level (test code = UQL5988) 213 74-118 H [facility] HospitalCalcium Drgqm1302-36-48 10:32:00* Test Item Value Reference Range Interpretation Comments Calcium Level (test code = 76236-1) 8.5 8.4-10.2 [facility] HospitalWhite Blood Fuayn3212-68-04 10:13:00* Test Item Value Reference Range Interpretation Comments White Blood Count (test code = 6690-2) 5.49 4.8-10.8 [facility] HospitalRed Blood Ymbca2988-31-08 10:13:00* Test Item Value Reference Range Interpretation Comments Red Blood Count (test code = 789-8) 5.12 4.3-5.7 [facility] HospitalHemoglobin2018-03-15 10:13:00* Test Item Value Reference Range Interpretation Comments Hemoglobin (test code = 87412-5) 15.9 14.0-18.0 [facility] HospitalHematocrit2018-03-15 10:13:00* Test Item Value Reference Range Interpretation Comments Hematocrit (test code = 4544-3) 44.2 38.2-49.6 [facility] HospitalMean Corpuscular Wytwty6677-97-68 10:13:00* Test Item Value Reference Range Interpretation Comments Mean Corpuscular Volume (test code = 787-2) 86.3 81-99 [facility] HospitalMean Corpuscular Cqlnrnykni0735-42-37 10:13:00* Test Item Value Reference Range Interpretation Comments Mean Corpuscular Hemoglobin (test code = 785-6) 31.1 28-32 [facility] HospitalMean Corpuscular Hemoglobin Concent 2017-11-17 10:13:00* Test Item Value Reference Range Interpretation Comments Mean Corpuscular Hemoglobin Concent (test code = 786-4) 36.0 31-35 H [facility] HospitalRed Cell Distribution Cslrm2977-22-73 10:13:00* Test Item Value Reference Range Interpretation Comments Red Cell Distribution Width (test code = 07027-7) 12.3 11.7 -14.4 [facility] HospitalPlatelet Tbspo3772-25-54 10:13:00* Test Item Value Reference Range Interpretation Comments Platelet Count (test code = 777-3) 227 140-360 [facility] HospitalNeutrophils (%) (Auto)2017-11-17 10:13:00 * Test Item Value Reference Range Interpretation Comments Neutrophils (%) (Auto) (test code = 06172-9) 51.4 38.7-80.0 [facility] HospitalLymphocytes (%) (Auto)2017-11-17 10:13:00 * Test Item Value Reference Range Interpretation Comments Lymphocytes (%) (Auto) (test code = 736-9) 35.5 18.0-39.1 [facility] HospitalMonocytes (%) (Auto)2017-11-17 10:13:00* Test Item Value Reference Range Interpretation Comments Monocytes (%) (Auto) (test code = 5905-5) 8.4 4.4-11.3 [facility] HospitalEosinophils (%) (Auto)2017-11-17 10:13:00 * Test Item Value Reference Range Interpretation Comments Eosinophils (%) (Auto) (test code = 713-8) 3.8 0.0-6.0 [facility] HospitalBasophils (%) (Auto)2017-11-17 10:13:00* Test Item Value Reference Range Interpretation Comments Basophils (%) (Auto) (test code = 706-2) 0.7 0.0-1.0 [facility] HospitalIM GRANULOCYTES %2017-11-17 10:13:00* Test Item Value Reference Range Interpretation Comments IM GRANULOCYTES % (test code = IM GRANULOCYTES %) 0.2 0.0- 1.0 [facility] HospitalNeutrophils # (Auto)2017-11-17 10:13:00* Test Item Value Reference Range Interpretation Comments Neutrophils # (Auto) (test code = 751-8) 2.8 2.1-6.9 [facility] HospitalLymphocytes # (Auto)2017-11-17 10:13:00* Test Item Value Reference Range Interpretation Comments Lymphocytes # (Auto) (test code = 36815-0) 2.0 1.0-3.2 [facility] HospitalMonocytes # (Auto)2017-11-17 10:13:00* Test Item Value Reference Range Interpretation Comments Monocytes # (Auto) (test code = 742-7) 0.5 0.2-0.8 [facility] HospitalEosinophils # (Auto)2017-11-17 10:13:00* Test Item Value Reference Range Interpretation Comments Eosinophils # (Auto) (test code = 711-2) 0.2 0.0-0.4 [facility] HospitalBasophils # (Auto)2017-11-17 10:13:00* Test Item Value Reference Range Interpretation Comments Basophils # (Auto) (test code = 704-7) 0.0 0.0-0.1 [facility] HospitalAbsolute Immature Granulocyte (auto 2017-11-17 10:13:00* Test Item Value Reference Range Interpretation Comments Absolute Immature Granulocyte (auto (kendall t code = Absolute Immature Granulocyte (auto) 0.01 0-0.1 [facility]US [facility] [place] [address] Patient Name: EMILIANO TUTTLE MR #: [id number] : 1970 Age/Sex: 47/M Req #: [id number] Adm Physician: Ordered by: ERYN MAXWELL MD Report #: [id number] Location: US Room/Bed: Procedure: [id number] US/US EXTREMITY DE LUNA NON-VAS Exam D [...] MYLES WHITEHEAD MD on 08/11/171650 Transcribed By: RBUEN on 1650 COPY TO: ERYN MAXWELL MD
--- OUTSIDE RECORDS SUMMARY | 2020-07-27 22:55 | XMS REPORT | Clinical Summary ---
Author Author [facility] Organization [facility] Address Unknown Phone Unavailable Care Team Providers Care Burner Hand Name Role Phone PCP Unavailable Allergies Comments [...] 50 to 75 Results Not on fileafter 07/27/2019 Insurance Type Payer Benefit Subscriber ID Effective Phone Address Plan / Dates Group [facility] SELF-PAY SELF-PAY xxxxxxxxx 2016- [phone] [address] [place] [address]
== END 2020-07-27 22:23 | disposition home or self-care (01) ==
LOC: ER 21:58
DX: K08.89 Other specified disorders of teeth and supporting structures (principal); E11.9 Type 2 diabetes mellitus without complications
CPT/HCPCS: 99283

== ENCOUNTER 2021-12-11 19:01 | Emergency (ER) | payer OTHER ==
[~2021-12-11] VITALS: Ht 177.8 cm; Wt 99.8 kg
[2021-12-11] MEDS ORDERED: TETANUS/DIPHTHERIA TOX ADULT 0.5 ML SYR IM ONE (19:30)
[2021-12-11] MEDS ORDERED: HYDROCODONE/APAP 10MG-325MG TAB PO ONE ×2 (19:30→19:45)
[2021-12-11] MEDS ORDERED: TETANUS/DIPHTHERIA TOX ADULT 0.5 ML SYR ONE (19:33)
[2021-12-11] MEDS ORDERED: NAPROXEN250 MG PO (22:17)
[2021-12-12] MEDS ORDERED: DOXYCYCLINE HY100 MG PO (20:15)
== END 2021-12-11 22:00 | disposition home or self-care (01) ==
LOC: ER 19:18
DX: M79.604 Pain in right leg (principal); W20.8XXA Other cause of strike by thrown, projected or falling object, initial encounter; Y93.H2 Activity, gardening and landscaping; Y92.218 Other school as the place of occurrence of the external cause; R50.9 Fever, unspecified; E11.8 Type 2 diabetes mellitus with unspecified complications
CPT/HCPCS: 90714; 93971; 99283

== ENCOUNTER 2021-12-12 19:16 | Emergency (ER) | payer OTHER ==
[~2021-12-12] VITALS: Ht 177.8 cm; Wt 99.8 kg
[~2021-12-12 19:16] MED LIST changes: +NAPROXEN250 MG PO
[2021-12-12] MEDS ORDERED: DOXYCYCLINE HY100 MG PO (20:15)
== END 2021-12-12 20:23 | disposition home or self-care (01) ==
LOC: ER 20:15
DX: M79.604 Pain in right leg (principal); S80.821A Blister (nonthermal), right lower leg, initial encounter; E11.9 Type 2 diabetes mellitus without complications
CPT/HCPCS: 99282

== ENCOUNTER 2025-05-29 11:19 | Emergency (ER) | payer OTHER ==
[~2025-05-29] VITALS: Ht 177.8 cm; Wt 90.7 kg
[~2025-05-29 11:19] MED LIST changes: +AMOXICILLIN500 MG PO; +DOXYCYCLINE HY100 MG PO; +IBUPROFEN600 MG PO; +ULTRAM 50MG50 MG PO
[2025-05-29 11:30] VITALS: RESP 20; TEMP 98.2
[2025-05-29] MEDS ORDERED: METHOCARBAMOL750 MG PO (14:23)
[2025-05-29 14:40] VITALS: PULSE 70
[2025-05-29 15:53] VITALS: BP 119/81; O2SAT 98
== END 2025-05-29 14:40 | disposition home or self-care (01) ==
LOC: ER 11:50
DX: S16.1XXA Strain of muscle, fascia and tendon at neck level, initial encounter (principal); M54.6 Pain in thoracic spine; V43.52XA Car driver injured in collision with other type car in traffic accident, initial encounter; Y92.488 Other paved roadways as the place of occurrence of the external cause; K80.20 Calculus of gallbladder without cholecystitis without obstruction
CPT/HCPCS: 70450; 71250; 72125; 99283